=== PATIENT | male | born 1960 | race American Indian/Alaskan Native ===

== ENCOUNTER 2017-01-04 08:25 | Day surgery (SDC) | payer BC, MEDICARE ==
--- NOTE | 2017-01-04 09:20 | Anesthesia Day of Surgery ---
Anesthesia Day of Surgery - Day of Surgery Patient Examined: Yes Patient H&P Reviewed: Yes Patient is NPO: Yes
--- NOTE | 2017-01-04 09:22 | Anesthesia Consultation ---
Anesthesia Consult and Med Hx Date of service: 01/04/17 - Airway Anesthetic Teeth Evaluation: Poor (gold left upper) ROM Head & Neck: Adequate Mental/Hyoid Distance: Adequate Mallampati Class: Class II Intubation Access Assessment: Probably Good - Pulmonary Exam CTA: Yes (blbs clear) - Cardiac Exam Cardiac Exam: RRR - Pulmonary Hx Smoking: No Hx Sleep Apnea: Yes (DX SLEEP APNEA-NO CPAP USE) - Cardiovascular System Hx Hypertension: No - Central Nervous System Hx Seizures: No Hx Back Pain: Yes (chronic pain pt) Hx Psychiatric Problems: No - Gastrointestinal Hx Gastroesophageal Reflux Disease: No - Endocrine Hx Renal Disease: No Hx Cirrhosis: No Hx Non-Insulin Dependent Diabetes: No - Hematic Hx Anemia: Yes - Other Systems Hx Alcohol Use: No Hx Substance Use: No Hx Cancer: Yes (colon s/p resection) Hx Obesity: Yes (morbid) - Additional Comments Anesthesia Medical History Comments: s/p gastric bypass
[2017-01-04] MEDS ORDERED: DIPRIVAN 10 MG/ML IV ONE (09:37)
[2017-01-04] MEDS ORDERED: XYLOCAINE MPF 2% ONE (09:37)
[2017-01-04] MEDS ORDERED: PEPCID PO NR (10:00)
[2017-01-04] MEDS ORDERED: NACL 0.9% 1000 ML 1,000 ML IV SCH (10:00)
[2017-01-04] MEDS ORDERED: DILAUDID IV PRN (10:00)
[2017-01-04] MEDS ORDERED: ANCEF/STERILE WATER 2 GM/20 ML 2 GM/20 ML SYRINGE IV NR (10:00)
[2017-01-04] MEDS ORDERED: SUBLIMAZE IV PRN (10:00)
[2017-01-04 10:02] LABS: Basophils % (Auto) 0.5 % (0.0-1.8); Eosinophils % (Auto) 2.3 % (0.0-4.3); Hematocrit 32.9 % (35.5-45.6); Hemoglobin 10.1 gm/dl (11.8-15.2); Mean Corpuscular HGB Conc 31 % (32-34); Mean Corpuscular Hemoglobin 24 pg (28-32); Mean Corpuscular Volume 79 fl (84-94); Platelet Count 309 K/mm3 (140-440); Red Blood Count 4.15 M/mm3 (3.65-5.03); Red Cell Distribution Width 17.1 % (13.2-15.2); White Blood Count 7.3 K/mm3 (4.5-11.0)
[2017-01-04] MEDS ORDERED: ZOFRAN ONE (10:19)
--- NOTE | 2017-01-04 10:33 | Post Operative Note ---
Date of procedure: 01/04/17 Pre-op diagnosis: r ureteral stone Post-op diagnosis: same Findings: as above Procedure: r eswl Anesthesia: TERESE Surgeon: ANNIE VALENTIN Estimated blood loss: none Specimen disposition: to lab Condition: stable Disposition: PACU
--- NOTE | 2017-01-04 10:35 | Discharge Summary ---
Short Stay Discharge Plan Activity: other (no straining ) Weight Bearing Status: Full Weight Bearing Diet: low fat, low cholesterol, low salt Special Instructions: other (inc fluids ) Durable Medical Equipment Needed Upon Discharge: other (no straining ) Follow up with: PRIMARY CARE, [Primary Care Provider] - 7 Days JUAN POLK MD [Staff Physician] - 7 Days
[2017-01-04] MEDS ORDERED: DILAUDID IV ONE (11:00)
--- NOTE | 2017-01-04 11:35 | Post Anesthesia Evaluation ---
- Post Anesthesia Evaluation Patient Participated: Yes Airway Patent: Yes Stable Respiratory Function: Yes Nausea/Vomiting: No Temp > 96.8F: Yes Pain Manageable: Yes Adequeate Hydration: Yes Anesthesia Complications: No Block Receding Appropriately: Not Applicable Patient on Ventilator: No
[2017-01-04 12:35] VITALS: BP 134/77
--- NOTE | 2017-01-04 13:19 | Operative Report ---
PREOPERATIVE DIAGNOSIS: Right upper ureteral stone, previous stent placement. POSTOPERATIVE DIAGNOSIS: Right upper ureteral stone, previous stent placement. PROCEDURE: Right ESWL. SURGEON: Sean Calvin MD ANESTHESIA: General. FINDINGS: This is a gentleman with large stone along the ureter with a double-J stent in place. He has had intermittently moderate pain. He now presents for treatment. He understands this is a staged procedure. He may need a sandwich technique meaning follow up percutaneously ureteroscopic manipulation of a large stone. He now presents for lithotripsy. DESCRIPTION OF PROCEDURE: The patient was brought to the operating room and placed on the operating table. Following induction of anesthesia, stone was well localized, both the AP and oblique image. Shocks were begun at 1 kV, increased to maximum of 6 kV in the ureter. A total of 2500 shocks were given. The patient tolerated the procedure well. The stone was not as dense, but I suspect he will need staged procedure to be sure that all the fragments and the stone is well fragmented considering large stone. He was brought to recovery in stable condition. JOB# [id number] JORGE/JULIO
== END 2017-01-04 12:26 | disposition home or self-care (01) ==
LOC: OR 08:25
PROVIDERS: ATTEND Urology
DX: N20.1 Calculus of ureter (principal); D64.9 Anemia, unspecified; G47.33 Obstructive sleep apnea (adult) (pediatric); I10 Essential (primary) hypertension; E66.01 Morbid (severe) obesity due to excess calories; Z68.41 Body mass index [BMI] 40.0-44.9, adult; Z98.84 Bariatric surgery status; Z90.49 Acquired absence of other specified parts of digestive tract; Z85.038 Personal history of other malignant neoplasm of large intestine; Z98.890 Other specified postprocedural states; Z79.899 Other long term (current) drug therapy; Z82.49 Family history of ischemic heart disease and other diseases of the circulatory system; Z83.3 Family history of diabetes mellitus; Z82.69 Family history of other diseases of the musculoskeletal system and connective tissue
CPT/HCPCS: 36415; 50590; 85025; J0690; J1170; J2405; J2704; J3010; J7030

== ENCOUNTER 2017-01-10 06:07 | Day surgery (SDC) | payer BC, MEDICARE ==
[~2017-01-10 06:07] MED LIST: NACL 0.9% 1000 ML 1,000 ML IV SCH; PEPCID PO NR; VERSED IV NR
--- NOTE | 2017-01-10 07:27 | Anesthesia Consultation ---
Anesthesia Consult and Med Hx Date of service: 01/10/17 - Airway Anesthetic Teeth Evaluation: Good ROM Head & Neck: Adequate Mental/Hyoid Distance: Adequate Mallampati Class: Class II Intubation Access Assessment: Probably Good - Pulmonary Exam CTA: Yes - Cardiac Exam Cardiac Exam: RRR - Pre-Operative Health Status ASA Pre-Surgery Classification: ASA3 Proposed Anesthetic Plan: General - Pulmonary Hx Smoking: No Hx Sleep Apnea: Yes (DX SLEEP APNEA-NO CPAP USE) - Cardiovascular System Hx Hypertension: No - Central Nervous System Hx Seizures: No Hx Back Pain: Yes (CHRONIC PAIN) Hx Psychiatric Problems: No - Gastrointestinal Hx Gastroesophageal Reflux Disease: No - Endocrine Hx Renal Disease: No Hx Non-Insulin Dependent Diabetes: No - Hematic Hx Anemia: Yes (IN PROCESS OF GI WORKUP) - Other Systems Hx Alcohol Use: No Hx Substance Use: No Hx Cancer: Yes (colon s/p resection) Hx Obesity: Yes (morbid)
--- NOTE | 2017-01-10 07:28 | Anesthesia Day of Surgery ---
Anesthesia Day of Surgery - Day of Surgery Patient Examined: Yes Patient H&P Reviewed: Yes Patient is NPO: Yes
[2017-01-10] MEDS ORDERED: NACL BACTERIOSTATIC INFILTRATI ONE (07:31)
[2017-01-10] MEDS ORDERED: SUBLIMAZE ONE (07:35)
[2017-01-10] MEDS ORDERED: DIPRIVAN 10 MG/ML IV ONE (07:35)
[2017-01-10] MEDS ORDERED: XYLOCAINE MPF 2% ONE (07:37)
[2017-01-10] MEDS ORDERED: DILAUDID IV ONE (07:45)
[2017-01-10] MEDS ORDERED: NORCO 5/325 PO PRN (08:00)
[2017-01-10] MEDS ORDERED: DILAUDID IV PRN (08:00)
[2017-01-10] MEDS ORDERED: ZOFRAN IV PRN (08:00)
[2017-01-10] MEDS ORDERED: ANCEF/STERILE WATER 2 GM/20 ML 2 GM/20 ML SYRINGE IV ONE (08:34)
[2017-01-10] MEDS ORDERED: ZOFRAN ONE (09:00)
[2017-01-10] MEDS ORDERED: WATER FOR IRRIG STERILE IR ONE (09:02)
[2017-01-10] MEDS ORDERED: OMNIPAQUE 300 MG/50 ML (CATH LAB) IV ONE (09:05)
[2017-01-10] MEDS ORDERED: ePHEDrine SULFATE ONE (09:17)
[2017-01-10] MEDS ORDERED: ANCEF/STERILE WATER 2 GM/20 ML IV NR (10:00)
[2017-01-10] MEDS ORDERED: AFRIN ONE (10:25)
--- NOTE | 2017-01-10 11:43 | Admit Criteria Form ---
Admission Criteria Documentation: AMBULATORY SURGERY EXCEPTION CRITERIA Ambulatory Surgery Exception Criteria ( Place 'X' for any and all applicable criteria): Surgery or procedure performed on ambulatory basis may require inpatient stay for[A] ANY ONE of the following(1)(2)(3)(4)(5)(6)(7)(8)(9): [X] I. A preoperative situation, condition, or finding that warrants inpatient stay as indicated by ANY ONE of the following: [] a) Inpatient care needed because of severity of a disease or condition rather than the surgery (eg, severe cardiac or respiratory disease, severe infection) (15) (16 ) (17) (18) [] b) Emergent procedure (eg, angioplasty for acute ischemia)(19) [] c) Complex surgical approach or situation as indicated by ANY ONE of the following(3): [] i) Open approach needed instead of usual endoscopic, transcatheter, or other less invasive procedure [] ii) Difficult approach because of previous operation [] iii) Airway monitoring required after open neck procedures(20)(21) [] iv) Large mass requiring unusually extensive dissection [] v) Additional complicating feature requiring inpatient care (eg, drain management)(22(23): [X] d) Major surgery in a pt with high anesthetic risk as indicated by ANY ONE of the following (2)(3)(5)(7)(8): [X] i) ASA risk class III or higher (severe systemic disease impairing function) [D] [] ii) Advanced age (eg, older than 85 years)(14)(24) [] iii) Symptomatic heart failure(25) [] iv) Symptomatic asthma or COPD(8)(21) [] v) Morbid obesity with hemodynamic or respiratory problems(20)( 21)(26)(27) [] vi) Obstructive sleep apnea(20)(21) [] vii) Former premature infants who are younger than 60 weeks [] viii) High risk for severe postoperative abnormalities (eg, severe postoperative hypocalcemia after parathyroidectomy for severe hyperparathyroidism)(27)( 28) [] ix) Unstable angina(25) [] e) Drug-related risk requiring inpatient stay as indicated by ANY ONE of the following(5)(10)(14)(32)(33) [] i) Procedure requires discontinuing drugs or other therapy (eg , antiarrhythmic medication, antiseizure medication), which necessitates inpatient observation or treatment.(18)(31) [] ii) Major surgery and high risk drug use as indicated by ANY ONE of the following: [] 1) Active abuse of cocaine or similar drug [] 2) Monoamine oxidase inhibitor use [] 3) Other drug identified as posing risk [] f) Inadequate outpatient care situation as indicated by ANY ONE of the following(5)(10)(14)(32)(33) [] i) Patient lives remote from medical facility and procedure has urgent complication potential, and temporary nearby residence cannot be arranged [] ii) Patient will have postprocedure incapacitation and inadequate assistance at home, or alternative level of care cannot be arranged. [] iii) Patient will have long general anesthesia or procedure side effect resolution time, and competent person to stay with patient on first postoperative night at home or alternative level of care cannot be arranged. []iv) Other inadequate outpatient situation that cannot be handled by other means [] II. A perioperative event, condition, or finding that warrants inpatient stay as indicated by ANY ONE of the following (1)(2)(3): [] a) Inadequate physiologic recovery: cardiovascular, respiratory, or hemodynamic status not normal or near preoperative baseline(18) [] b) Hemodynamic instability [] c) Patient not alert with near normal or baseline mental status [] d) Temperature not normal or as expected and not appropriate for outpatient treatment of condition [] e) Ambulatory or appropriate activity level status not yet achieved post procedure [E](34)(35)(36) [] f) Operative site not appropriate (eg, unexpected or excessive drainage or bleeding) [] g) Postoperative effects not resolved or adequately managed (eg, significant pain or vomiting not appropriate for outpatient or next level of care)(10)(12) [] h) Complicating features requiring inpatient care as indicated by ANY ONE of the following(37): [] i) Severe complications of procedure (eg, bowel injury, airway compromise, vascular injury,severe hemorrhage) [] ii) Extensive (eg, dissection far beyond usual scope of procedure ) or prolonged (eg, 120 minutes beyond usual) surgery needed requiring inpatient postoperative care [] iii) Conversion to an open or complex procedure that requires inpatient care (eg, open vs laparoscopic cholecystectomy, abdominal vs vaginal hysterectomy)(38) [] iv) Comorbid condition or test result identified during or post procedure that requires inpatient care (7) [] v) Malignant hyperthermia(30) [] vi) Other complicating feature requiring inpatient care(22)(23) Inpatient stay may be needed until ALL of the following are present (1)(2)(3)(4) (5)(6)(10)(14)(33)(40): []a) Physiologic recovery: cardiovascular, respiratory, and hemodynamic status normal or near preoperative baseline []b) Hemodynamic stability []c) Patient alert, with near normal or baseline mental status []d) Temperature appropriate: patient afebrile or temperature appropriate for outpt treatment of condition []e) Activity level appropriate: ambulatory or appropriate activity level post procedure []f) Operative site appropriate as indicated by ALL of the following: []i) Site dry or with expected drainage []ii) Any blood noted is as expected for procedure. []g) Postoperative effects resolved or managed as indicated by ALL of the following: []i) Pain management appropriate for outpatient (or next level of) care(10) []ii) Minimal nausea and vomiting: if present, successfully treated with oral medication(12) []iii) Headache, dizziness, or drowsiness (if present) are mild. []h) Voiding status acceptable as indicated by ANY ONE of the following: []i) Voiding spontaneously []ii) No voiding but instructions given for follow-up in 6 to 8 hours []iii) Urinary catheter in place, and instructions given for follow-up []i) Complicating features requiring inpatient care manageable at a lower level of care(37) []j) Comorbid conditions manageable at a lower level of care(37) The original [employer] content created by [employer] has been revised. The portions of the content which have been revised are identified through the use of italic text or in bold, and [facility] has neither reviewed nor approved the modified material. All other unmodified content is copyright [employer]. Please see references footnoted in the original [employer] edition 2016 Admission Criteria Met: Yes
[2017-01-10] MEDS ORDERED: DECADRON ONE (13:00)
[2017-01-10] MEDS ORDERED: NEO SYNEPHRINE/NS Syringe(OR USE) IV ONE (13:00)
[2017-01-10] MEDS ORDERED: TORADOL ONE (13:21)
[2017-01-10] MEDS ORDERED: PROVENTIL IH ONE (13:22)
[2017-01-10] MEDS ORDERED: TORADOL IV SCH (13:25)
[2017-01-10] MEDS ORDERED: PROVENTIL IH PRN (13:26)
[2017-01-10] MEDS ORDERED: PERCOCET 5/325 PO SCH (15:00)
[2017-01-10 15:19] VITALS: BP 144/70
--- NOTE | 2017-01-11 07:22 | Fluoroscopy Report ---
FLUOROSCOPY RETROGRADE UROGRAPHY: HISTORY: Bilateral renal stones, benign prostatic hyperplasia. FINDINGS: Fluoroscopy was provided by radiology during retrograde urography by Dr. Freed. 8 fluoroscopic images were captured. Machine Binding Folder image demonstrates a right ureteral stent which appears in good position. There is an approximate 7 mm calcification adjacent to the proximal right ureteral stent which probably represents a ureteral stone. Right ureteroscopy with lithotripsy and stone basket extraction was performed. A holmium laser was utilized. Right ureteral stent exchange was also performed. The left pyelogram was not performed. Please correlate with the procedural report as needed. IMPRESSION: Right ureteral stent exchange. Right ureteral stone removal.
--- NOTE | 2017-01-16 14:20 | Operative Report ---
PREOPERATIVE DIAGNOSIS: Right proximal ureteral stone and bilateral renal stones. POSTOPERATIVE DIAGNOSIS: Right proximal ureteral stone and bilateral renal stones. PROCEDURE: Ureteroscopy, laser stone basket extraction, stent replacement. ESTIMATED BLOOD LOSS: Minimal. COMPLICATIONS: None. FINDINGS: Staged for future treatment of the other bilateral renal stones and stent removal. SPECIMENS: None. ESTIMATED BLOOD LOSS: Minimal. IMPLANTS: None. COMPLICATIONS: None. CLINICAL INDICATIONS: Counseled RCBA, antibiotics, SCDs. The patient has a history of paroxysmal large stone. He was counseled on options, had a stent placed urgently at one point due to symptoms and lithotripsy with minimal fragmentation was counseled on options including PNL. Open ureteroscopy other elected to proceed. He was scheduled, allowed for adequate time for passive dilation of the ureter with stent in place. He was scheduled for the procedure and desired to proceed. DESCRIPTION OF PROCEDURE: The patient was transferred to the OR suite in supine position, anesthesia, dorsal lithotomy, prepped and draped in standard fashion. At this point, a 20-Libyan scope passed. The procedure was difficult due to the patient's morbid obesity, large pannus, wire passed adjacent to this stent. We had to use an angled wire. Once again due to the patient's limitations passed up to the kidney, stent grasped, pulled out intact. Rigid ureteroscope passed up to the stone. Holmium laser passed, began fragmentation of the stone. Sequentially removing fragments with triceps grasper, the fragments were dropped within the bladder. At this point, there maybe one small fragment was pushed back into the kidney. Of course the patient did have other preexisting larger right renal lower pole stone and left renal stones. At this point, a second wire was passed. A rigid scope was removed. Flexible scope was passed. Of course, this was difficult due to the patient's large pannus pushing the flexible ureteroscope down making it extremely difficult to limit it due to the patient's morbid obesity. We passed the scope up into the kidney and inspected remaining fragments in the upper pole unsure if this was a previous existing stone or push back of small fragment, attempted manipulation of the stone, but this was difficult and unable to access due to the factors and scope was withdrawn, wire replaced. They did not have a 5-Libyan stent of a 28 length so a 6 x 28 stent was placed under fluoroscopic visualization and wire and string removed, nice proximal and distal J, staged for future removal. [facility]# [id number] ATS/JULIO
== END 2017-01-10 15:35 | disposition home or self-care (01) ==
LOC: OR 06:07
PROVIDERS: ATTEND Urology
DX: N20.0 Calculus of kidney (principal); I10 Essential (primary) hypertension; D64.9 Anemia, unspecified; E66.01 Morbid (severe) obesity due to excess calories; Z68.41 Body mass index [BMI] 40.0-44.9, adult; Z85.038 Personal history of other malignant neoplasm of large intestine; Z90.49 Acquired absence of other specified parts of digestive tract; Z98.84 Bariatric surgery status; Z82.69 Family history of other diseases of the musculoskeletal system and connective tissue; Z82.49 Family history of ischemic heart disease and other diseases of the circulatory system; Z83.3 Family history of diabetes mellitus
CPT/HCPCS: 36415; 52356; 74420; 82365; A4217; C1726; C1758; C1769; C2617; J0690; J1100; J1170; J1885; J2250; J2370; J2405; J2704; J3010; J7030; Q9967